=== PATIENT | female | born 1985 | race African-American/Black ===

== ENCOUNTER 2019-06-18 23:07 | Inpatient (IN) ==
[2019-06-18] MEDS ORDERED: SODIUM CHLORIDE 0.9% 1,000 ML IV STA (23:48)
[2019-06-19 00:27] LABS: Basophils # 0.1 10*3/uL (0.0-0.2); Basophils % 0.3 % (0.0-0.8); Eosinophils # 0.1 10*3/uL (0.0-0.87); Eosinophils % 0.3 % (0.00-10.9); Hematocrit 35.6 VOL% (35.7-47.0); Hemoglobin 10.6 GM/DL (12.0-16.0); Immature Granulocytes % 0.6 %; Immature Granulocytes Absolute 0.12 #; Lymphocytes # 1.4 10*3/uL (1.4-4.0); Mean Corpuscular HGB Conc 29.8 GM/DL (32-36); Mean Corpuscular Volume 78.6 FL (87-102); Mean Platelet Volume 9.6 FL (9.6-12.0); Monocytes % 3.8 % (1.7-12.7); Platelet Count 383 T/CUMM (130-400); Red Blood Count 4.53 MC/CUMM (3.8-5.5); Red Cell Distribution Width 15.4 % (9.3-17.3); White Blood Count 19.5 T/CUMM (4-12)
[2019-06-19 00:42] LABS: Apearance,Urine CLEAR (Clear); Bilirubin,Urine Negative (Negative); Blood, Urine Large mg/dL (Negative); Glucose,Urine (UA) Negative (Negative); Hyaline Casts,Urine 3 /LPF (0-3); Ketones,Urine Negative (Negative); Mucus,Urine Occasional /LPF (Occasional); Nitrite,Urine Negative (Negative); Protein,Urine Negative; RBC,Urine 1 /HPF (0-4); Squamous Epithelial Cell,Urine Occasional /HPF (0-10); Urine Color Yellow (Yellow); Urine Specific Gravity 1.021 (1.001-1.035); Urine Urobilinogen < 2.0 EU/DL (0.2-1.0); WBC,Urine 1 /HPF (0-6)
[2019-06-19 00:45] LABS: Barbiturates Screen,Urine Negative (Negative); Benzodiazepines Screen,Urine Negative (Negative); Cannabinoid Screen,Urine Negative (Negative); Opiate Screen,Urine Negative (Negative); Phencyclidine Screen,Urine Negative (Negative)
[2019-06-19 00:48] LABS: Alanine Aminotransferase 29 U/L (13-56); Albumin 3.8 G/DL (3.4-5.0); Alkaline Phosphatase 68 U/L (45-117); Aspartate Amino Transferase 19 U/L (0-37); Blood Urea Nitrogen 10 MG/DL (7-18); Calcium 9.3 MG/DL (8.5-10.1); Estimated Glom Filtration Rate 96 ML/MIN; Glucose 118 MG/DL (74-106); Total Protein 8.2 G/DL (6.4-8.3)
[2019-06-19 00:53] LABS: INR 1.1; PT Patient Result 11.7 SECS (9.6-12.2)
[2019-06-19] MEDS ORDERED: cefTRIAXone 1,000 MG in SODIUM CHLORIDE 0.9% 100 ML IV STA (00:55)
[2019-06-19] MEDS ORDERED: MAGNESIUM SULF RIDER 2 GM in PREMIX 1 EACH IV STA (00:57)
[2019-06-19] MEDS ORDERED: LACTATED RINGERS 1,000 ML IV ONE (04:47)
[2019-06-19] MEDS ORDERED: KETOROLAC 15 MG/1 ML VIAL IV PRN (07:10)
[2019-06-19] MEDS: ACETAMINOPHEN 325 MG TABLET PO PRN ×3 (07:24→19:43)
[2019-06-19] MEDS: SODIUM CHLORIDE 0.9% 1,000 ML IV SCH ×2 (07:42→17:40)
[2019-06-19] MEDS: hydroCHLOROthiazide 12.5 MG CAPSULE PO SCH (09:46)
[2019-06-19] MEDS: LOSARTAN 50 MG TABLET PO SCH (09:46)
[2019-06-19] MEDS ORDERED: AMPICILLIN INJ 2,000 MG in SODIUM CHLORIDE 0.9% 100 ML IV SCH (11:00)
[2019-06-19] MEDS ORDERED: CLINDAMYCIN INJ 900 MG in PREMIX 1 EACH IV SCH (12:00)
[2019-06-19] MEDS ORDERED: SODIUM CHLORIDE 0.9% 3,600 ML IV ONE (13:21)
[2019-06-19] MEDS: GENTAMICIN INJ 400 MG in SODIUM CHLORIDE 0.9% 100 ML IV SCH (13:35)
[2019-06-19] MEDS: PIPERACILLIN/TAZOBACTAM 3,375 MG in SODIUM CHLORIDE 0.9% 100 ML IV SCH ×2 (14:41→21:45)
[2019-06-19] MEDS: VANCOMYCIN INJ 1,750 MG in SODIUM CHLORIDE 0.9% 250 ML IV SCH (18:48)
[2019-06-20] MEDS: SODIUM CHLORIDE 0.9% 1,000 ML IV SCH ×2 (03:59→16:57)
[2019-06-20 05:41] LABS: Basophils # 0.1 10*3/uL (0.0-0.2); Basophils % 0.2 % (0.0-0.8); Eosinophils # 0.1 10*3/uL (0.0-0.87); Eosinophils % 0.5 % (0.00-10.9); Hematocrit 31.1 VOL% (35.7-47.0); Hemoglobin 9.1 GM/DL (12.0-16.0); Immature Granulocytes % 2.1 %; Immature Granulocytes Absolute 0.56 #; Lymphocytes # 1.8 10*3/uL (1.4-4.0); Lymphocytes % 6.6 % (21.3-54.2); Mean Corpuscular HGB Conc 29.3 GM/DL (32-36); Mean Corpuscular Volume 79.1 FL (87-102); Mean Platelet Volume 9.4 FL (9.6-12.0); Monocytes % 4.5 % (1.7-12.7); Neutrophils % 86.1 % (38.7-73.9); Platelet Count 306 T/CUMM (130-400); Red Blood Count 3.93 MC/CUMM (3.8-5.5); Red Cell Distribution Width 15.7 % (9.3-17.3); White Blood Count 26.6 T/CUMM (4-12)
[2019-06-20 05:46] LABS: Calcium 7.5 MG/DL (8.5-10.1); Osmolality,Calculated 277.3 MOS/KG (273-304)
[2019-06-20] MEDS: PIPERACILLIN/TAZOBACTAM 3,375 MG in SODIUM CHLORIDE 0.9% 100 ML IV SCH ×2 (06:07→14:59)
[2019-06-20] MEDS: VANCOMYCIN INJ 1,750 MG in SODIUM CHLORIDE 0.9% 250 ML IV SCH (06:07)
[2019-06-20 06:16] LABS: Band Neutrophils 15 % (0-10); Eosinophils 2 % (0-10); Lymphocytes 4 % (20-55); Platelet Estimate Normal; Segmented Neutrophils 74 % (50-85); Total Cells Counted 100
[2019-06-20 06:17] LABS: Anisocytosis 2+
[2019-06-20] MEDS ORDERED: MAGNESIUM SULF RIDER 2 GM in PREMIX 1 EACH IV PRN (08:11)
[2019-06-20] MEDS ORDERED: MAGNESIUM SULF RIDER 4 GM in PREMIX 1 EACH IV PRN (08:11)
[2019-06-20] MEDS: LOSARTAN 50 MG TABLET PO SCH ×2 (08:28→10:39)
[2019-06-20] MEDS: hydroCHLOROthiazide 12.5 MG CAPSULE PO SCH ×2 (08:28→10:39)
[2019-06-20] MEDS: ACETAMINOPHEN 325 MG TABLET PO PRN ×2 (08:28→15:03)
[2019-06-20] MEDS: POTASSIUM CHLORIDE 20 MEQ TABLET PO PRN ×4 (09:23→17:22)
[2019-06-20] MEDS: GENTAMICIN INJ 400 MG in SODIUM CHLORIDE 0.9% 100 ML IV SCH (13:07)
[2019-06-20] MEDS: VANCOMYCIN INJ 1,750 MG in SODIUM CHLORIDE 0.9% 500 ML IV SCH (17:22)
[2019-06-21] MEDS: ACETAMINOPHEN 325 MG TABLET PO PRN (00:09)
[2019-06-21] MEDS: PIPERACILLIN/TAZOBACTAM 3,375 MG in SODIUM CHLORIDE 0.9% 100 ML IV SCH ×3 (00:14→15:01)
[2019-06-21] MEDS: SODIUM CHLORIDE 0.9% 1,000 ML IV SCH ×4 (02:32→23:30)
[2019-06-21 05:28] LABS: Basophils % 0.2 % (0.0-0.8); Eosinophils # 0.4 10*3/uL (0.0-0.87); Hematocrit 27.8 VOL% (35.7-47.0); Hemoglobin 8.1 GM/DL (12.0-16.0); Immature Granulocytes % 0.7 %; Immature Granulocytes Absolute 0.12 #; Lymphocytes # 1.3 10*3/uL (1.4-4.0); Lymphocytes % 7.3 % (21.3-54.2); Mean Corpuscular HGB Conc 29.1 GM/DL (32-36); Mean Corpuscular Volume 80.1 FL (87-102); Mean Platelet Volume 9.8 FL (9.6-12.0); Neutrophils % 84.8 % (38.7-73.9); Platelet Count 300 T/CUMM (130-400); Red Blood Count 3.47 MC/CUMM (3.8-5.5); White Blood Count 18.4 T/CUMM (4-12)
[2019-06-21] MEDS: VANCOMYCIN INJ 1,750 MG in SODIUM CHLORIDE 0.9% 500 ML IV SCH ×2 (05:40→19:56)
[2019-06-21 05:46] LABS: Calcium 7.6 MG/DL (8.5-10.1); Osmolality,Calculated 274.4 MOS/KG (273-304)
[2019-06-21] MEDS: hydroCHLOROthiazide 12.5 MG CAPSULE PO SCH (09:57)
[2019-06-21] MEDS: LOSARTAN 50 MG TABLET PO SCH (09:57)
[2019-06-21] MEDS: GENTAMICIN INJ 400 MG in SODIUM CHLORIDE 0.9% 100 ML IV SCH (13:00)
[2019-06-21] MEDS ORDERED: AZITHROMYCIN INJ 500 MG in SODIUM CHLORIDE 0.9% 250 ML IV SCH (17:00)
[2019-06-21] MEDS: MEROPENEM 500 MG in SODIUM CHLORIDE 0.9% 100 ML IV SCH ×2 (17:26→22:43)
[2019-06-21] MEDS: POTASSIUM CHLORIDE 20 MEQ TABLET PO PRN ×3 (18:17→22:46)
[2019-06-21] MEDS: LACTOBACILLUS RHAMNOSUS GG CAPSULE PO SCH (20:58)
[2019-06-22] MEDS: MEROPENEM 500 MG in SODIUM CHLORIDE 0.9% 100 ML IV SCH ×3 (04:55→17:36)
[2019-06-22] MEDS: SODIUM CHLORIDE 0.9% 1,000 ML IV SCH ×4 (04:58→23:45)
[2019-06-22 05:11] LABS: Basophils % 0.2 % (0.0-0.8); Eosinophils # 0.4 10*3/uL (0.0-0.87); Eosinophils % 2.5 % (0.00-10.9); Immature Granulocytes Absolute 0.17 #; Lymphocytes # 1.8 10*3/uL (1.4-4.0); Lymphocytes % 10.7 % (21.3-54.2); Mean Corpuscular HGB Conc 29.6 GM/DL (32-36); Mean Corpuscular Volume 78.7 FL (87-102); Mean Platelet Volume 10.3 FL (9.6-12.0); Monocytes % 6.2 % (1.7-12.7); Neutrophils % 79.4 % (38.7-73.9); Platelet Count 330 T/CUMM (130-400); Red Blood Count 3.43 MC/CUMM (3.8-5.5); Red Cell Distribution Width 15.8 % (9.3-17.3); White Blood Count 16.9 T/CUMM (4-12)
[2019-06-22 05:46] LABS: Albumin 2.3 G/DL (3.4-5.0); Bilirubin,Total 0.8 MG/DL (0.2-1.0); Calcium 7.9 MG/DL (8.5-10.1); Total Protein 6.7 G/DL (6.4-8.3)
[2019-06-22 06:36] LABS: HIV Antigen/Antibody Result Nonreactive (Nonreactive)
[2019-06-22] MEDS ORDERED: SODIUM CHLORIDE 0.9% 1,000 ML IV PRN (06:44)
[2019-06-22] MEDS ORDERED: SODIUM PHOSPHATE IV ONE (09:00)
[2019-06-22] MEDS ORDERED: SODIUM CHLORIDE 0.9% IV ONE (09:00)
[2019-06-22] MEDS: LOSARTAN 50 MG TABLET PO SCH (09:44)
[2019-06-22] MEDS: AZITHROMYCIN 250 MG TABLET PO SCH (09:44)
[2019-06-22 09:45] LABS: Folate 5.3 NG/ML (5.4-24.0)
[2019-06-22] MEDS: LACTOBACILLUS RHAMNOSUS GG CAPSULE PO SCH ×2 (09:45→21:18)
[2019-06-22] MEDS: hydroCHLOROthiazide 12.5 MG CAPSULE PO SCH (09:45)
[2019-06-22 09:49] LABS: Risk Ratio 4.81; VLDL CHOLESTEROL 16.8 MG/DL
[2019-06-22 10:08] LABS: Ferritin 61.6 ng/ml (8-252)
[2019-06-22] MEDS: VANCOMYCIN INJ 1,750 MG in SODIUM CHLORIDE 0.9% 500 ML IV SCH ×2 (14:03→21:17)
[2019-06-22] MEDS: GENTAMICIN INJ 400 MG in SODIUM CHLORIDE 0.9% 100 ML IV SCH (16:55)
[2019-06-22] MEDS ORDERED: OMEGA 3 ACID ETHYL ESTERS 1 GM CAPSULE PO SCH (21:00)
[2019-06-23] MEDS: MEROPENEM 500 MG in SODIUM CHLORIDE 0.9% 100 ML IV SCH ×3 (00:12→11:35)
[2019-06-23 04:41] LABS: Basophils % 0.3 % (0.0-0.8); Eosinophils # 0.5 10*3/uL (0.0-0.87); Hematocrit 33.3 VOL% (35.7-47.0); Hemoglobin 10.2 GM/DL (12.0-16.0); Immature Granulocytes % 0.8 %; Immature Granulocytes Absolute 0.11 #; Lymphocytes % 14.8 % (21.3-54.2); Mean Corpuscular HGB Conc 30.6 GM/DL (32-36); Mean Corpuscular Volume 78.7 FL (87-102); Mean Platelet Volume 9.6 FL (9.6-12.0); Monocytes % 6.6 % (1.7-12.7); Neutrophils % 73.5 % (38.7-73.9); Platelet Count 357 T/CUMM (130-400); Red Blood Count 4.23 MC/CUMM (3.8-5.5); Red Cell Distribution Width 15.8 % (9.3-17.3); White Blood Count 13.3 T/CUMM (4-12)
[2019-06-23] MEDS: VANCOMYCIN INJ 1,750 MG in SODIUM CHLORIDE 0.9% 500 ML IV SCH (08:49)
[2019-06-23] MEDS: LOSARTAN 50 MG TABLET PO SCH (08:51)
[2019-06-23] MEDS: LACTOBACILLUS RHAMNOSUS GG CAPSULE PO SCH (08:51)
[2019-06-23] MEDS: AZITHROMYCIN 250 MG TABLET PO SCH (08:51)
[2019-06-23] MEDS: hydroCHLOROthiazide 12.5 MG CAPSULE PO SCH (08:51)
[2019-06-23] MEDS ORDERED: COENZYME Q10 100 MG CAPSULE PO SCH (09:00)
[2019-06-23 11:52] VITALS: BP 156/90
[2019-06-23] MEDS: SODIUM CHLORIDE 0.9% 1,000 ML IV SCH (12:15)
[2019-06-25 16:10] LABS: QuantiFERON-Tb Gold Pl Negative (Negative); TB2 Ag Minus Result 0 IU/mL
== END 2019-06-23 12:49 | disposition home or self-care (01) | DRG 758 ==
LOC: N.ED 23:07 → N.EDINP 06-19 03:26 → N.2E 06-19 05:32
PROVIDERS: ADMIT Specialist; ATTEND Specialist

== ENCOUNTER 2021-02-06 05:26 | Inpatient (IN) ==
[2021-01-30 16:20] LABS: Bilirubin,Urine Negative (Negative); Blood, Urine Moderate mg/dL (Negative); Glucose,Urine (UA) Negative (Negative); Ketones,Urine Negative (Negative); Mucus,Urine Occasional /LPF (Occasional); Nitrite,Urine Negative (Negative); Protein,Urine Negative; RBC,Urine 60 /HPF (0-4); Squamous Epithelial Cell,Urine Occasional /HPF (0-10); Urine Appearance CLEAR (Clear); Urine Color Yellow (Yellow); Urine Specific Gravity 1.016 (1.001-1.035); Urine Urobilinogen < 2.0 EU/DL (0.2-1.0)
[2021-01-30 16:32] LABS: Calcium 9.1 MG/DL (8.5-10.1); Osmolality,Calculated 274.7 MOS/KG (273-304); Potassium 3.6 MMOL/L (3.5-5.1)
[2021-01-30 16:35] LABS: INR 1.1; PT Patient Result 12.1 SECS (10.5-12.0); Partial Thromboplastin Time 24.1 SECS (23.9-33.8)
[2021-01-30 17:25] LABS: Basophils # 0.1 10*3/uL (0.0-0.2); Basophils % 0.7 % (0.0-0.8); Eosinophils # 0.2 10*3/uL (0.0-0.87); Hematocrit 30.3 VOL% (35.7-47.0); Hemoglobin 8.7 GM/DL (12.0-16.0); Immature Granulocytes % 0.4 %; Immature Granulocytes Absolute 0.03 #; Lymphocytes # 2.3 10*3/uL (1.4-4.0); Lymphocytes % 28.4 % (21.3-54.2); Mean Corpuscular HGB Conc 28.7 GM/DL (32-36); Mean Corpuscular Volume 85.1 FL (87-102); Mean Platelet Volume 9.5 FL (9.6-12.0); Monocytes % 6.7 % (1.7-12.7); Neutrophils % 60.8 % (38.7-73.9); Platelet Count 443 T/CUMM (130-400); Red Blood Count 3.56 MC/CUMM (3.8-5.5); Red Cell Distribution Width 16.7 % (9.3-17.3); White Blood Count 8.1 T/CUMM (4-12)
[2021-02-06] MEDS ORDERED: GABAPENTIN 400 MG CAPSULE PO ONE (06:28)
[2021-02-06] MEDS ORDERED: ACETAMINOPHEN 500 MG TABLET PO ONE (06:28)
[2021-02-06] MEDS ORDERED: DEXAMETHASONE 4 MG/1 ML VIAL ONE ×2 (06:29→06:40)
[2021-02-06] MEDS ORDERED: BUPIVACAINE MPF 0.25% 30 ML VIAL ONE (06:29)
[2021-02-06] MEDS ORDERED: LACTATED RINGERS 1,000 ML IV SCH ×2 (06:30→10:00)
[2021-02-06] MEDS ORDERED: ONDANSETRON 4 MG/2 ML VIAL ONE (06:40)
[2021-02-06] MEDS ORDERED: KETOROLAC 30 MG/1 ML VIAL ONE (06:40)
[2021-02-06] MEDS ORDERED: ACETAMINOPHEN INJ 1,000 MG/100 ML VIAL IV ONE (06:40)
[2021-02-06] MEDS ORDERED: GLYCOPYRROLATE 0.4 MG/2 ML VIAL ONE (06:40)
[2021-02-06] MEDS ORDERED: SEVOFLURANE 1 UNIT/15 MINUTE INH ONE ×7 (06:40→09:22)
[2021-02-06] MEDS ORDERED: LIDOCAINE 2% 5 ML VIAL ONE (06:40)
[2021-02-06] MEDS ORDERED: propofoL 200 MG/20 ML VIAL IV ONE ×2 (06:40→09:01)
[2021-02-06] MEDS ORDERED: fentaNYL 100 MCG/2 ML VIAL ONE (06:41)
[2021-02-06] MEDS ORDERED: NEOSTIGMINE 10 MG/10 ML VIAL ONE (06:41)
[2021-02-06] MEDS ORDERED: MIDAZOLAM 2 MG/2 ML VIAL ONE (06:41)
[2021-02-06] MEDS ORDERED: ceFAZolin 1,000 MG VIAL ONE (06:43)
[2021-02-06] MEDS ORDERED: LIDOCAINE 1% 5 ML VIAL ONE (06:45)
[2021-02-06] MEDS ORDERED: SUCCINYLCHOLINE 200 MG/10 ML VIAL ONE (07:56)
[2021-02-06] MEDS ORDERED: PHENYLEPHRINE 1 MG/10 ML SYRINGE IV ONE ×2 (07:56→08:55)
[2021-02-06] MEDS ORDERED: ePHEDrine 50 MG/ML VIAL ONE (08:02)
[2021-02-06] MEDS ORDERED: ROCURONIUM 50 MG/5 ML VIAL IV ONE (08:15)
[2021-02-06] MEDS ORDERED: LACTATED RINGERS 2,000 ML IV ONE (09:22)
[2021-02-06] MEDS ORDERED: DOCUSATE SODIUM 100 MG CAPSULE PO PRN (09:33)
[2021-02-06] MEDS ORDERED: BENZOCAINE/MENTHOL LOZENGE 18/BOX PO PRN (09:33)
[2021-02-06] MEDS ORDERED: BISACODYL 10 MG SUPP RECTAL PRN (09:33)
[2021-02-06] MEDS ORDERED: ACETAMINOPHEN 325 MG TABLET PO PRN (09:33)
[2021-02-06] MEDS ORDERED: ONDANSETRON 4 MG/2 ML VIAL IV PRN ×2 (09:33→10:09)
[2021-02-06] MEDS ORDERED: MAGNESIUM HYDROXIDE SUSP 30 ML UDCUP PO PRN (09:33)
[2021-02-06 09:49] LABS: Bilirubin,Urine Negative (Negative); Blood, Urine Negative (Negative); Glucose,Urine (UA) Negative (Negative); Ketones,Urine Negative (Negative); Mucus,Urine Few /LPF (Occasional); Nitrite,Urine Negative (Negative); Protein,Urine Negative; RBC,Urine 1 /HPF (0-4); Squamous Epithelial Cell,Urine Occasional /HPF (0-10); Urine Appearance CLEAR (Clear); Urine Color Yellow (Yellow); Urine Specific Gravity 1.019 (1.001-1.035); Urine Urobilinogen < 2.0 EU/DL (0.2-1.0)
[2021-02-06] MEDS: HYDROmorphone 2 MG/1 ML VIAL IV PRN ×2 (10:00→10:07)
[2021-02-06] MEDS ORDERED: HYDROmorphone 2 MG/1 ML VIAL ONE (10:01)
[2021-02-06] MEDS: MEPERIDINE 50 MG/1 ML VIAL IV PRN ×2 (14:51→21:04)
[2021-02-07] MEDS: oxyCODONE/ACETAMINOPHEN 5-325 MG TABLET PO PRN ×3 (06:06→18:20)
[2021-02-07 06:36] LABS: Basophils % 0.1 % (0.0-0.8); Hematocrit 30.1 VOL% (35.7-47.0); Hemoglobin 8.6 GM/DL (12.0-16.0); Immature Granulocytes % 0.6 %; Immature Granulocytes Absolute 0.09 #; Lymphocytes # 1.4 10*3/uL (1.4-4.0); Lymphocytes % 9.6 % (21.3-54.2); Mean Corpuscular HGB Conc 28.6 GM/DL (32-36); Mean Corpuscular Volume 87.8 FL (87-102); Mean Platelet Volume 9.5 FL (9.6-12.0); Monocytes % 4.1 % (1.7-12.7); Neutrophils % 85.6 % (38.7-73.9); Platelet Count 352 T/CUMM (130-400); Red Blood Count 3.43 MC/CUMM (3.8-5.5); White Blood Count 14.5 T/CUMM (4-12)
[2021-02-07 06:43] LABS: Hypochromasia 1+; Microcytosis 1+; Platelet Estimate Adequate
[2021-02-07] MEDS: IBUPROFEN 800 MG TABLET PO PRN ×2 (11:30→20:11)
[2021-02-08] MEDS: oxyCODONE/ACETAMINOPHEN 5-325 MG TABLET PO PRN (07:50)
[2021-02-08] MEDS: IBUPROFEN 800 MG TABLET PO PRN (07:50)
[2021-02-08 09:10] VITALS: BP 135/76
== END 2021-02-08 10:30 | disposition home or self-care (01) | DRG 742 ==
LOC: N.OR 05:26 → N.SDSINP 05:29 → EDSTATUS 07:30 → N.OB 09:35
PROVIDERS: ADMIT Specialist; ATTEND Specialist